=== PATIENT | female | born 1965 | race Caucasian/White ===

== ENCOUNTER 2024-02-22 08:25 | Day surgery (SDC) | payer MEDICAID ==
[~2024-02-22] VITALS: Ht 165.1 cm; Wt 95.7 kg
[2024-02-22] MEDS ORDERED: MIDAZOLAM HCL 5 MG/5 ML VIAL ONE (10:06)
[2024-02-22] MEDS ORDERED: MEPERIDINE 100 MG INJ. 100 MG/ML VIAL ONE (10:06)
[2024-02-22 13:15] VITALS: O2SAT 100
[2024-02-22 17:42] VITALS: BP_SYST 156; PULSE 65; RESP 18
== END 2024-02-22 13:20 | disposition home or self-care (01) ==
LOC: SMU 08:25 → SDS 08:25
PROVIDERS: ATTEND Internal Medicine Gastroenterology
DX: D12.2 Benign neoplasm of ascending colon (principal); K29.50 Unspecified chronic gastritis without bleeding; K31.A0 Gastric intestinal metaplasia, unspecified; R19.4 Change in bowel habit; K21.9 Gastro-esophageal reflux disease without esophagitis; D64.9 Anemia, unspecified; K44.9 Diaphragmatic hernia without obstruction or gangrene; K57.30 Diverticulosis of large intestine without perforation or abscess without bleeding; K64.8 Other hemorrhoids; I10 Essential (primary) hypertension; I25.2 Old myocardial infarction; M10.9 Gout, unspecified; M19.90 Unspecified osteoarthritis, unspecified site; Z90.89 Acquired absence of other organs; Z79.899 Other long term (current) drug therapy
CPT/HCPCS: 45385; 43239; 88305; 88312; 88313; 99153; 99152; G0378; J2250; J2175